=== PATIENT | female | born 1955 | race Caucasian/White ===

== ENCOUNTER 2019-11-17 13:55 | Emergency (ER) | payer MEDICARE, MEDICAID, SELFPAY ==
--- NOTE | 2019-11-17 13:58 | ED.GENADULT ---
HPI - General Adult General Chief complaint: Urogenital-Female Stated complaint: POSSIBLE KIDNEY INFECTION Time Seen by Provider: 11/17/19 13:58 Source: patient Mode of arrival: ambulatory Limitations: no limitations History of Present Illness HPI narrative: 64-year-old female patient presents to the [facility] with complaints of frequent urination, decrease in urination, and low back pain for the past week. Patient states that she thought that she just had some back pain due to work. Patient states she has been taking AZO for the urinary pain which has decreased her pain. Patient states she last took AZO today. Patient denies any abdominal pain, nausea, vomiting or diarrhea. Denies any fevers, body aches or chills. Related Data Home Medications Medication Instructions Recorded Confirmed bupropion HCl 150 mg PO DIRECTED 11/17/19 11/17/19 lisinopril 10 mg PO DAILY 11/17/19 11/17/19 sertraline 100 mg PO DAILY 11/17/19 11/17/19 Allergies Allergy/AdvReac Type Severity Reaction Status Date / Time levofloxacin Allergy Unknown Other Verified 11/17/19 14:07 valacyclovir Allergy Unknown rash Unverified 06/14/18 09:06 adhesive AdvReac Severe BLISTERS/BU Verified 06/14/18 09:06 RNS ENVIRONMENTAL ALLERGENS AdvReac Unknown Other Uncoded 11/17/19 14:07 Review of Systems Review of Systems: Narrative: CONSTITUTIONAL: Denies fever, chills, or sweats. EYES: Denies visual changes, redness, or discharge. ENT: Denies rhinorrhea, congestion, sore throat, or otalgia. CARDIOVASCULAR: Denies chest pain, palpitations, or edema. RESPIRATORY: Denies cough or dyspnea. GASTROINTESTINAL: Denies abdominal pain, nausea, vomiting, or diarrhea. GENITOURINARY: Denies dysuria or hematuria. Positive pain with urination, decrease in urination, urgency urgency and frequency SKIN: Denies rash or itching. MUSCULOSKELETAL: Positive low back pain, denies joint pain, or myalgia. NEUROLOGIC: Denies headache, numbness, or weakness. PSYCHIATRIC: Denies anxiety or depression. REPLACED BY [facility] Past Medical History Medical History (Updated 11/17/19 @ 14:22 by CASI Nieves) Anxiety Depression Hypertension Surgical History Surgical History (Updated 11/17/19 @ 14:00 by CASI Nieves) H/O inguinal hernia repair History of orthopedic surgery Right carpal tunnel, 2 times bilateral ulnar nerve/left thumb trigger finger Hx of cholecystectomy Family History Family History Other Diabetes mellitus Family history of mental disorder Hypertension Social History Social History Smoking status: Never smoker Alcohol intake: current Comments At the time of my signature I agree with nursing past medical history, surgical, social, and family history. There is no relevant family history pertinent to the presenting complaint. Exam Narrative: Exam Narrative: GENERAL: Well-appearing, well-nourished, and in no acute distress. HEAD: Normocephalic, atraumatic. EYES: PERRLA and EOMI. ENT: Nares clear, no rhinorrhea or epistaxis. Mucous membranes moist. NECK: Supple. No lymphadenopathy CHEST: Clear to auscultation. No respiratory distress. HEART: Regular rate and rhythm. No murmur heard. Normal peripheral pulses. ABDOMEN: Soft, nontender, nondistended, normal active bowel sounds. CVA tenderness noted to bilateral sides on percussion. EXTREMITIES: Normal range of motion. No edema. SKIN: Warm, dry, no rash. NEURO: No focal deficits. Alert and oriented x3. Course Vital Signs Vital signs: Vital Signs Temperature 36.4 C 11/17/19 14:12 Pulse Rate 79 11/17/19 14:12 Respiratory Rate 16 11/17/19 14:12 Blood Pressure 136/67 11/17/19 14:12 Pulse Oximetry 98 11/17/19 14:12 Temperature 36.4 C 11/17/19 14:12 Pulse Rate 79 11/17/19 14:12 Respiratory Rate 16 11/17/19 14:12 Blood Pressure 136/67 11/17/19 14:12 Pulse
[2019-11-17 14:12] VITALS: BP 136/67; PULSE 79; RESP 16; TEMP 36.4; O2SAT 98
== END 2019-11-17 14:24 | disposition home or self-care (01) ==
PROVIDERS: Emergency Provider Nurse Practitioner Family
DX: N30.00 Acute cystitis without hematuria (principal); F41.9 Anxiety disorder, unspecified; F32.9 Major depressive disorder, single episode, unspecified; I10 Essential (primary) hypertension
CPT/HCPCS: 81003; 87086; 99213; G0463

== ENCOUNTER 2020-11-26 16:52 | Emergency (ER) | payer OTHER, MEDICARE, MEDICAID, SELFPAY ==
[2020-11-26] VITALS (9 sets, daily range): BP systolic 134–158; BP diastolic 80–90; PULSE 73–80; RESP 12–20; TEMP 36.7–37.4; O2SAT 93–99
--- NOTE | ~2020-11-26 | XR_ITS ---
EXAMINATION: XR wrist RT 2V DATE: 11/26/2020 19:18 INDICATION: Postreduction right wrist fracture TECHNIQUE: Posteroanterior and lateral views of the right wrist were obtained. COMPARISON: 11/26/2020 FINDINGS: Interval reduction and casting of the right wrist fracture. 5 mm residual volar displacement of the d istal radial fracture which appears mildly comminuted with suggestion of nondisplaced fracture line e xtending to the articular cortex. There is widening of the distal radioulnar joint. Fracture across t he base of the ulnar styloid process with improvement in now than on the 5 mm residual radial displac ement. Joint spaces appear normal. IMPRESSION: 1. Improved alignment post reduction and casting of a comminuted potential intra-articular fracture o f the distal right radius with mild residual volar displacement of a fracture across the ulnar styloi d process with mild residual radial displacement. 2. Widening of the distal radioulnar joint. Reviewed, dictated and finalized at location A. IMPRESSION: 1. Improved alignment post reduction and casting of a comminuted potential intr a-articular fracture of the distal right radius with mild residual volar displa cement of a fracture across the ulnar styloid process with mild residual radial displacement. 2. Widening of the distal radioulnar joint.
--- NOTE | ~2020-11-26 | XR_ITS ---
XR wrist RT 2V DATE: 11/26/2020 17:28 INDICATION: Fall, right wrist injury, obvious deformity TECHNIQUE: AP and portable crosstable lateral views COMPARISON: None FINDINGS: There is a comminuted intra-articular fracture of the distal radius with complete anterior displacement. There is a moderately displaced fracture of the ulnar styloid process. Radiocarpal alignment is preserved. Osteopenia. IMPRESSION: Anteriorly displaced comminuted intra-articular fracture of the distal radius Fracture of the ulnar styloid process Reviewed, dictated and finalized at location A. IMPRESSION: Anteriorly displaced comminuted intra-articular fracture of the dis aki radius Fracture of the ulnar styloid process
[2020-11-26] MEDS: fentaNYL CITRATE INJ (*CRX) 100 MCG/2 ML VIAL 50 MCG IV PUSH ×2 (18:26→18:46)
--- NOTE | 2020-11-26 18:46 | PC.NURSE ---
1847 EDP administered 30mg of propofol via IVP.
--- NOTE | 2020-11-26 20:21 | ED.UPPEXIN ---
HPI - Extremity Injury (Upper) General Chief Complaint: Extremity Injury, Upper Stated Complaint: wrist injury Time Seen by Provider: 11/26/20 17:07 Source: patient Mode of arrival: ambulatory Limitations: no limitations History of Present Illness HPI narrative: 65-year-old female Had a ground-level fall shortly before arrival and landed on her right wrist Complains of pain, swelling, deformity No other injuries It was a mechanical fall, not triggered by dizziness or syncope or the like No head injury, no neck pain Related Data Home Medications Medication Instructions Recorded Confirmed bupropion HCl 150 mg PO DIRECTED 11/17/19 11/17/19 lisinopril 10 mg PO DAILY 11/17/19 11/17/19 sertraline 100 mg PO DAILY 11/17/19 11/17/19 Allergies Allergy/AdvReac Type Severity Reaction Status Date / Time levofloxacin Allergy Unknown Other Verified 11/17/19 14:07 valacyclovir Allergy Unknown rash Verified 11/26/20 17:16 escitalopram [From Lexapro] Allergy Unknown Verified 11/26/20 17:16 adhesive AdvReac Severe BLISTERS/BU Verified 06/14/18 09:06 RNS ENVIRONMENTAL ALLERGENS AdvReac Unknown Other Uncoded 11/17/19 14:07 Review of Systems Review of Systems: All systems reviewed & are unremarkable except as noted in HPI and below Constitutional: Constitutional: Denies headache(s) ENT: Denies headache(s) Cardiovascular: Cardiovascular: Denies dyspnea Genitourinary: Genitourinary: Denies urinary frequency Musculoskeletal: Musculoskeletal: Denies back pain, Denies deformity, Reports arthralgias, Reports joint swelling and Denies numbness Integumentary/Breasts: Skin/Breast: Denies wounds Neurologic: Denies dizziness, Denies headache(s), Denies focal weakness, Denies numbness and Denies weakness Hematologic/Lymphatic: Hematologic/Lymphatic: Reports no additional hematologic/lymphatic complaints PMFSH Past Medical History Medical History (Updated 11/26/20 @ 20:26 by Jesus Oscar MD) Anxiety Depression Hypertension Surgical History Surgical History (Updated 11/17/19 @ 14:00 by CASI Nieves) H/O inguinal hernia repair History of orthopedic surgery Right carpal tunnel, 2 times bilateral ulnar nerve/left thumb trigger finger Hx of cholecystectomy Family History Family History Other Diabetes mellitus Family history of mental disorder Hypertension Social History Social History Smoking status: Never smoker Alcohol intake: current Exam Const: General: cooperative and no acute distress Orientation/consciousness: patient oriented x3 (alert) HENMT: Head: normal to inspection, normocephalic and atraumatic Ears: external ears normal General nose exam: no epistaxis Neck: Neck: supple and no JVD Resp: Effort & Inspection: normal respiratory effort and not labored Auscultation: other (BS =) Skin: General skin exam: no rashes or lesions noted Neuro: General: patient oriented x3 (alert) and moves all extremities Speech: normal speech Extrem: Other: Obvious deformity of right wrist with tenderness Old scar from carpal tunnel release Intact distal sensation Intact pulses Psych: Affect: normal affect Course Course Emergency Course: Reviewed pre and postreduction x-rays with Dr. Coffey and he will see her in the office tomorrow Patient advised surgery the very likely recommendation Vital Signs Vital signs: Vital Signs Temperature 37.4 C 11/26/20 17:14 Pulse Rate 80 11/26/20 17:14 Respiratory Rate 14 11/26/20 17:14 Blood Pressure 158/82 H 11/26/20 17:14 Pulse Oximetry 99 11/26/20 17:14 Temperature 36.9 C 11/26/20 19:16 Pulse Rate 78 11/26/20 19:38 Respiratory Rate 20 11/26/20 19:38 Blood Pressure 151/90 H 11/26/20 19:38 Pulse Oximetry 93 11/26/20 19:38 Procedures Orthopedic Fracture Reduction Fracture #1:
== END 2020-11-26 20:35 | disposition home or self-care (01) ==
PROVIDERS: Emergency Provider Emergency Medicine
DX: S52.531A Colles' fracture of right radius, initial encounter for closed fracture (principal); I10 Essential (primary) hypertension; F41.9 Anxiety disorder, unspecified; F32.9 Major depressive disorder, single episode, unspecified; W18.30XA Fall on same level, unspecified, initial encounter
CPT/HCPCS: 25605; 73100; 96374; 99285; A4565; J2704; J3010

== ENCOUNTER 2020-12-02 11:16 | Outpatient (CLI) | payer MEDICARE, MEDICAID, SELFPAY ==
--- NOTE | 2020-12-02 11:41 | ECG_ITS ---
Measurements Intervals Parker Rate: 81 P: 13 SD: 176 QRS: -10 QRSD: 97 T: 37 QT: 366 QTc: 427 Interpretive Statements SINUS RHYTHM DELAYED PRECORDIAL R/S TRANSITION BASELINE ARTIFACT- I, II, AVR, AVL, AVF, V1 BORDERLINE ECG Electronically Signed On 12-02-2020 12:18:40 CDT by Alfred Munoz D.O.
[2020-12-02 12:01] LABS: Anion Gap 8 mmol/L (8-16); Blood Urea Nitrogen 8 mg/dL (7-17); Calcium 9.6 mg/dL (8.4-10.2); Carbon Dioxide 28 mmol/L (22-30); Chloride 106 mmol/L (98-107); Estimated Glomerular Filt Rate > 60; Glucose 101 mg/dL (65-110); Sodium 142 mmol/L (137-145)
== END 2020-12-02 11:17 | disposition home or self-care (01) ==
PROVIDERS: PCP Family Medicine; Visit Provider Orthopaedic Surgery Hand Surgery
DX: M25.531 Pain in right wrist (principal)
CPT/HCPCS: 36415; 80048; 93005

== ENCOUNTER 2021-05-11 11:00 | Outpatient (RCR) | payer OTHER, SELFPAY ==
--- NOTE | 2021-03-10 15:22 | OTOPEVAL ---
OCCUPATIONAL THERAPY INITIAL EVALUATION REPORT 03/10/20 Thank you for referring Liliam Lepe [facility].? The patient is scheduled to be seen for therapy? 2x/week for 3 weeks. Please review, sign, date and return this plan of care DARLEEN. I agree with and certify that the following plan of care is medically necessary. Referring Physician Date Referring Provider: Artem Jameson, *OT Outpatient Evaluation Start: 03/10/21 14:20 Freq: Status: Active Protocol: Document 03/10/21 14:20 HODAN (Rec: 03/10/21 15:22 HODAN [email or web address]) Therapy Assessment Status Assessment Status Assessment Status Evaluation Outpatient Past Medical History Past Medical History Source of Past Medical History Recalled from Previous Visit, Confirmed with Patient/Family Cardiovascular History Hx Hypertension Yes Gastrointestinal History Hx Cholecystectomy Yes Hx Hernia Yes: repaired Musculoskeletal History Hx Orthopedic Surgery Yes: rt carpal tunnel, bilat ulnar nerve/ lt trigger finger Psychosocial History Hx Anxiety Yes Hx Depression Yes Evaluation Information Problem Diagnosis Right distal radius fracture Cause Fall Additional Evaluation Detail ORIF 12/03/20 Subjective Information Liliam reports being 3-4 week s Query Text:As Reported By Patient/ /p immobilization. She states Family she had some delayed healing in one of the bones. 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 She reports she has not been back to work yet. She states that her limitations are stiffness and weakness. She lives home alone and has returned to being independent with ADLs, household tasks, and laundry. She notes difficulties with opening a bottle with the right hand, with lifting a lewis /pot with food/liquid in it, and she is unable to start her car with the right hand. Pain Assessment Timing of Pain Assessment Timing of Pain Assessment Assessment Pain Scale Pain Scale Used Numeric (1 - 10) Self Report Pain Assessment Right Wrist(s) Reported Pain Level 2 Pain Description Aching Pain Frequency Continuous Lowest Pain Intensity 1 Greatest Pain In
--- NOTE | 2021-03-26 10:01 | OTOPEVAL ---
OCCUPATIONAL THERAPY RE-ASSESSMENT AND POC UPDATE 03/26/21 OT re-assessment completed today after 5 therapy visits. Patient making progress with functional ROM and is progressing with functional use. She continues to have deficits with pain and weakness, which restricts her ability to complete heavier ADL tasks. Continued skilled OT indicated for strengthening progression, use of modalities, and functional therapeutic activities to promote optimal functional use of the right UE. Thank you for referring Liliam Lepe to [facility].? The patient is scheduled to be seen for therapy? 2x/week for 4 weeks. Please review, sign, date and return this plan of care DARLEEN. I agree with and certify that the following plan of care is medically necessary. Referring Physician Date Referring Provider: Artem Jameson, *OT Outpatient Re-Evaluation Start: 03/10/21 14:20 Diagnosis Right distal radius fracture Cause Fall Additional Evaluation Detail ORIF 12/03/20 Subjective Information Liliam reports that since Query Text:As Reported By Patient/ working with therapy Family everything is getting better . She states that cooking is getting easier and she is able to stir food with the right hand. She reports improved ability to start the car with the right hand. She continues to have difficulties with opening bottles/jars and states she is unable to pull wet clothes out of the washer with the right hand. She reports being discouraged that she isn't farther along. Pain Assessment Timing of Pain Assessment Timing of Pain Assessment Re-assessment Pain Scale Pain Scale Used Numeric (1 - 10) Self Report Pain Assessment Right Wrist(s) Reported Pain Level 2 Pain Description Aching Lowest Pain Intensity 1 Greatest Pain Intensity 4 Pain Score Pain Score 2: Self Report Interventions Used Interventions Used By Clinicians Exercise Upper Extremity Range of Motion Elbow/Forearm Range of Motion Right Forearm Supination - Active 75 Forearm Pronation - Active 85 Elbow/Forearm Range of Motion Comments Supination improved from 65* Pronation remained WFL Wrist Range of Motion Right Wrist Flexion - Active 65 Wrist Extension - Active 50 Wrist Radial Deviation - Active 25 Wrist Ulnar Deviation - Active 20 Wrist Range of Motion Comments Wrist flexion improved from 35* Wrist extension improved from 45* Wrist RD improved from 20*
--- NOTE | 2021-04-08 12:10 | PCOTNOTE ---
Patient called & cancelled scheduled appointment this date due to the weather.
--- NOTE | 2021-04-22 14:16 | OTOPEVAL ---
OCCUPATIONAL THERAPY RE-EVALUATION AND PROGRESS REPORT 04/22/21 OT re-assessment completed today after 7 weeks of therapy. Patient making progress with ROM, functional strength, and use. She has been compliant with stress loading protocol, completing sessions 2-3x/day. We have been simulating work tasks in the clinic and she is progressing with her lifting tolerance as well as functional endurance. Plan to continue to work with the patient for an additional 2 weeks with the goal of being ready to return to work by her next MD follow up on 05/12/21. Thank you for referring Liliam Lepe to [facility].? The patient is scheduled to be seen for therapy? 1-2x/week for 3 weeks. Please review, sign, date and return this plan of care DARLEEN. I agree with and certify that the following plan of care is medically necessary. Referring Physician Date Referring Provider: Artem Jameson, *OT Outpatient Evaluation Start: 03/10/21 14:20 Evaluation Information Diagnosis Right distal radius fracture Cause Fall Additional Evaluation Detail ORIF 12/03/20 Subjective Information Liliam reports that she is Query Text:As Reported By Patient/ doing better with functional Family use of the right hand. She states she is doing better with opening jars, pulling wet clothes out of the washer, and carrying items. She reports her arm gets tired easy, but she is able to do more than she was doing a month ago. Pain Assessment Timing of Pain Assessment Timing of Pain Assessment Assessment Pain Scale Pain Scale Used Numeric (1 - 10) Self Report Pain Assessment Right Wrist(s) Reported Pain Level 1 Pain Description Aching Lowest Pain Intensity 1 Greatest Pain Intensity 4 Pain Score Pain Score 1: Self Report Interventions Used Interventions Used By Clinicians Exercise,Paraffin Upper Extremity Range of Motion Elbow/Forearm Range of Motion Right Forearm Supination - Active 75 Forearm Pronation - Active 85 Elbow/Forearm Range of Motion Comments Since the last re-eval on 03/26, pronation/supination remained unchanged. She is WFL. Wrist Range of Motion Right Wrist Flexion - Active 67 Wrist Extension - Active 55 Wrist Radial Deviation - Active 30 Wrist Ulnar Deviation - Active 25 Wrist Range of Motion Comments Since the last re-eval on 03/26: Wrist flexion improved from 65* Wrist extension improved from 50* Wrist RD improved from 25* Wrist UD improved from 20* Finger Range of Motion Bilateral Reason Not Measured
--- NOTE | 2021-05-01 14:33 | PCOTNOTE ---
Patient called & cancelled scheduled appointment this date due to the icy weather.
--- NOTE | 2021-05-11 11:44 | OTOPEVAL ---
OCCUPATIONAL THERAPY RE-EVALUATION AND DISCHARGE NOTE 05/11/21 Liliam presents for her 3rd OT re-evaluation since beginning therapy on 03/10/21. Her ROM is within functional limits and she is using her right UE for more everyday tasks. She has been able to tolerate lifting more weight, but she continues to report being anxious about going back to work. We have practiced simulated work tasks in the clinic and she does really well with lifting, carrying, pushing, etc. 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 At this time, plan to discharge the patient from therapy with the goal of Liliam continuing to work on her home exercise program and to return to work to continue to build her strength and functional use tolerance. She states she is in agreement with this plan. Thank you for referring Liliam Lepe to [facility]. Please review, sign, date and return this D/C Note DARLEEN. I agree with and certify that the following plan of care is medically necessary. Referring Physician Date Referring Provider: Artem Jameson, *OT Outpatient Re-Evaluation Start: 03/10/21 14:20 Diagnosis Right distal radius fracture Cause Fall Additional Evaluation Detail ORIF 12/03/20 03/10/21 - OT began. She has attended 17 sessions. Subjective Information Liliam reports that she has Query Text:As Reported By Patient/ made a lot of progress in the Family last month. She states she is now able to pull wet clothes out the washer, carry her 4# purse, do the dishes, clean the bathroom, and make the bed . She notices that her arm continues to get fatigued, but not as bad as a month ago. She states that she talked to her boss and they are going to have her come back for 1 day/ week. She will go back with another worker there at all times. She states she is anxious about going back, but states she is ready. Pain Assessment Timing of Pain Assessment Timing of Pain Assessment Re-assessment Pain Scale Pain Scale Used Numeric (1 - 10) Self Report Pain Assessment Right Wrist(s) Reported Pain Level 1 Pain Description Aching,Dull Lowest Pain Intensity 1 Greatest Pain Intensity 4 Pain Score Pain Score 1: Self Report Interventions Used Interventions Used By Clinicians Education Upper Extremity Range of Motion Elbow/Forearm Range of Motion Right Forearm Supination - Active 75 Forearm Pronation - Active 85 Elbow/Forearm Range of Motion Comments Pronation/supination
== END 2021-05-11 15:31 | disposition home or self-care (01) ==
LOC: ANHOT 11:00
PROVIDERS: PCP Family Medicine; Referring Provider Orthopaedic Surgery Hand Surgery; Visit Provider Orthopaedic Surgery Hand Surgery
DX: M25.531 Pain in right wrist (principal); S52.571S Other intraarticular fracture of lower end of right radius, sequela
CPT/HCPCS: 97018; 97110; 97140; 97165

== ENCOUNTER 2021-09-21 06:52 | Outpatient (CLI) | payer OTHER, SELFPAY ==
--- NOTE | ~2021-09-21 | MR_ITS ---
EXAMINATION: MR wrist RT wo con DATE: 09/21/2021 07:43 INDICATION: Closed fracture of the distal right radius TECHNIQUE: Magnetic resonance imaging (MRI) of the right wrist was performed without intravenous cont rast. Sequences performed include axial PD-weighted FSE and PD-weighted FS FSE, coronal PD-weighted F S FSE and T1-weighted SE, and sagittal PD-weighted FS FSE and PD-weighted FSE. COMPARISON: Radiographs dated 11/24/2020 FINDINGS: Bones/other: The distal right radial fracture has healed in near-anatomic alignment with volar T plate and screw f ixation. There are some associated metallic magnetic field artifact which mildly limits evaluation in the immediately adjacent bone and soft tissues. 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 There is mild dorsal subluxation of the ulna at the distal radioulnar joint with widening of the volar side of the joint space. Increased lunocapitate angle of 27 degrees . No more recent fracture, erosions, avascular necrosis or pathologic marrow replacing process. Mild osteoarthritis at the wris t, triscaphe and first carpal metacarpal joints. Intrinsic ligaments: There is a tear of the central membranous portion of the scapholunate ligament. Thickening and amorph ous mild increased signal at the volar and more subtly at the dorsal components of the scapholunate l igament consistent with partial tear. The lunotriquetral ligament is normal. Triangular fibrocartilage complex (TFCC): There is mild increased intrasubstance signal at the central fibrocartilaginous disc of the triangula r fibrocartilage complex as well as along the dorsal radioulnar ligament consistent with partial tear s. Complete tear of the foveal attachment. The attachment to the nonunited ulnar styloid fragment rem ains intact. The volar radioulnar and ulnar triquetral ligaments are normal. There is thickening and mild increased signal of the ulnar side of the extensor carpi ulnaris tendon subjacent sheath consist ent with scarring related to prior partial tear. Extensor wrist: Extensor tendons of the wrist are normal. No tenosynovitis. Flexor wrist: The flexor tendons of the wrist are normal. No abnormality in the carpal tunnel with normal median n erve. There is likely postoperative scarring in the subcutaneous tissues extending along the flexor c arpi radialis tendon. Guyon's canal: Guyon's canal including the ulnar nerve and artery are normal. IMPRESSION: 1. 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 2. Complete tear of the foveal attachment of the triangular fibrocartilage complex and partial tears of the dorsal radioulnar ligament, central fibrocartilaginous disc of the triangular fibrocartilage c omplex as well as the ulnar side of the extensor carpi ulnaris subsheath. Secondary mild dorsal sublu xation of the ulna at the distal radioulnar joint. 3. Scarring consistent with partial tear of the scapholunate ligament with increased lunocapitate ang le consistent with secondary dorsal intercalated segment instability (DISI). Reviewed, dictated and finalized at location A. IMPRESSION: 1. Healed internally fixed fracture of the distal radius in near-anatomic align ment with residual mild distraction of a chronic nonunited fracture of the ulna r styloid process. 2. Complete tear of the foveal attachment of the triangular fibrocartilage comp oralia and partial tears of the dorsal radioulnar ligament, central fibrocartilagi nous disc of the triangular fibrocartilage complex as well as the ulnar side of the extensor carpi ulnaris subsheath. Secondary mild dorsal subluxation of the ulna at the dista
== END 2021-09-21 06:53 | disposition home or self-care (01) ==
PROVIDERS: Visit Provider Orthopaedic Surgery Hand Surgery
DX: S66.811D Strain of other specified muscles, fascia and tendons at wrist and hand level, right hand, subsequent encounter (principal); X58.XXXD Exposure to other specified factors, subsequent encounter
CPT/HCPCS: 73221

== ENCOUNTER 2022-02-05 08:15 | Emergency (ER) | payer OTHER, SELFPAY ==
[2022-02-05 08:32] VITALS: BP 134/97; PULSE 90; RESP 16; TEMP 36.3; O2SAT 98
--- NOTE | 2022-02-05 08:43 | ED.URI ---
HPI - URI/Sore Throat General Chief Complaint: Upper Respiratory Infection Stated Complaint: productive cough, loss of voice, trouble sleeping Time Seen by Provider: 02/05/22 08:43 Source: patient Mode of arrival: ambulatory Limitations: no limitations History of Present Illness HPI Narrative: 66-year-old female presents with complaint cough, chest congestion for 2 weeks. Report source voice, sore throat. Taking [id number] cough medication with no relief. Reports some days she feels better and then the next day she feels bad again. Reports mild shortness of breath with exertion. Afebrile. Did home COVID test that was negative. Denies nausea vomiting diarrhea. All Systems reviewed and negative except as noted above. Related Data Home Medications Medication Instructions Recorded Confirmed bupropion HCl 150 mg tablet,12 hr 150 mg PO DIRECTED 11/17/19 02/05/22 sustained-release lisinopril 10 mg tablet 10 mg PO DAILY 11/17/19 02/05/22 sertraline 100 mg tablet 100 mg PO DAILY 11/17/19 02/05/22 clonazepam 0.5 mg tablet 0.5 mg PO DAILY PRN Anxiety 12/05/20 02/05/22 Allergies Allergy/AdvReac Type Severity Reaction Status Date / Time levofloxacin Allergy Unknown Other Verified 02/05/22 08:37 valacyclovir Allergy Unknown rash Verified 02/05/22 08:37 escitalopram [From Lexapro] Allergy Unknown Verified 02/05/22 08:37 adhesive AdvReac Severe BLISTERS/BU Verified 02/05/22 08:37 RNS ENVIRONMENTAL ALLERGENS AdvReac Unknown Other Uncoded 02/05/22 08:37 Review of Systems Review of Systems: CONSTITUTIONAL: Denies fever, chills, or sweats. reports fatigue EYES: Denies visual changes, redness, or discharge. ENT: reports rhinorrhea, congestion, sore throat. Denies otalgia. CARDIOVASCULAR: Denies chest pain, palpitations, or edema. RESPIRATORY: reports cough and dyspnea on exertion. GASTROINTESTINAL: Denies abdominal pain, nausea, vomiting, or diarrhea. GENITOURINARY: Denies dysuria or hematuria. SKIN: Denies rash or itching. MUSCULOSKELETAL: Denies back pain, joint pain, or myalgia. NEUROLOGIC: Denies headache, numbness, or weakness. PSYCHIATRIC: Denies anxiety or depression. All other systems reviewed are negative, except as documented in HPI. [facility] Past Medical History Medical History Anxiety Depression Hypertension Surgical History Surgical History H/O inguinal hernia repair History of orthopedic surgery Right carpal tunnel, 2 times bilateral ulnar nerve/left thumb trigger finger Hx of cholecystectomy Family History Family History (Updated 12/05/20 @ 13:43 by Agnes Dumont MA) Other Arthritis Depression Diabetes mellitus Family history of mental disorder Hypertension Social History Social History (Updated 12/05/20 @ 13:44 by Agnes Dumont MA) Smoking status: Never smoker Alcohol intake: never Substance use: never 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 There is no relevant family history pertinent to the presenting complaint. Exam Narrative: GENERAL: This is a well-nourished, well-developed patient, in no apparent distress. HEAD: normocephalic, atraumatic. EYES: PERRL. Sclera clear/white. Vision is grossly intact. EARS: External ears normal, auditory canals clear and without drainage, TMs normal without perforation. Hearing grossly intact. NOSE: External nose normal with clear nasal drainage, erythema to both nares. THROAT: Mucous membranes moist, Mild erythema of throat with postnasal drip. NECK: Neck supple, non-tender without lymphadenopathy, masses or thyromegaly. CARDIOVASCULAR: Regular rate and rhythm without murmurs, gallops, or rubs. RESPIRATORY: Decreased lung sounds t
== END 2022-02-05 09:03 | disposition home or self-care (01) ==
PROVIDERS: Emergency Provider Nurse Practitioner Family
DX: R05.9 Cough, unspecified (principal); J04.0 Acute laryngitis; I10 Essential (primary) hypertension
CPT/HCPCS: 99213; G0463

== ENCOUNTER 2023-08-21 12:53 | Emergency (ER) | payer MEDICARE, MEDICAID, SELFPAY ==
--- NOTE | ~2023-08-21 | XR_ITS ---
EXAMINATION: XR chest 2V DATE: 08/21/2023 13:45 INDICATION: Right-sided chest wall pain post fall TECHNIQUE: PA and lateral views of the chest were obtained. COMPARISON: Chest radiograph dated 05/17/2006 FINDINGS: Linear and bandlike predominant opacities at the right lung base and favor atelectasis/scarring over pneumonia. Additional minimal streaky opacities lung the left hemidiaphragm including at the costophr enic angle with similar differential. No pulmonary edema, pleural effusion or pneumothorax. Heart siz e is normal with prominent bilateral pericardial fat pads. Moderate thoracic spondylosis. Cholecystec jennyfer clips at the gallbladder fossa. IMPRESSION: 1. Opacities at the bilateral lung bases, right greater than left which could represent atelectasis o r pneumonia. Reviewed, dictated and finalized at location A. IMPRESSION: 1. Opacities at the bilateral lung bases, right greater than left which could r epresent atelectasis or pneumonia.
--- NOTE | ~2023-08-21 | XR_ITS ---
EXAMINATION: XR shoulder RT min 2V DATE: 08/21/2023 13:45 INDICATION: Posterior right shoulder pain post fall TECHNIQUE: AP internally and externally rotated, AP oblique externally rotated and transscapular Y vi ews of the right shoulder were obtained. COMPARISON: None FINDINGS: Normal alignment. No fracture.Moderate right acromioclavicular osteoarthritis. Right glenohumeral augusto int space appears relatively preserved. Opacities at the right lung base which could represent atelec tasis or pneumonia. IMPRESSION: Moderate right acromioclavicular osteoarthritis. No acute osseous abnormality. Reviewed, dictated and finalized at location A.
--- NOTE | ~2023-08-21 | CT_ITS ---
EXAMINATION: CT brain wo con DATE: 08/21/2023 13:42 INDICATION: Left posterior head injury post fall 2 days prior TECHNIQUE: Computed tomography (CT) of the head was performed without intravenous contrast. Sagittal and coronal reconstructions were performed. The mA was adjusted according to patient size. Iterative reconstruction technique was employed. The dose-length product was 605.33 mGy-cm. COMPARISON: head CT dated 05/17/06 FINDINGS: No fracture. No acute intracranial hemorrhage, acute infarction or abnormal extra axial fluid collect ion. There is minimal scattered white matter hypoattenuation consistent with chronic small vessel isc hemic disease. Ventricles are normal and symmetric. No mass/mass effect. Changes of bilateral intrao cular lens replacement. The orbits, paranasal sinuses and mastoid air cells are normal. A couple calc ified scalp nodules to the right of the vertex most consistent with trichilemmal cysts. IMPRESSION: 1. Normal aging brain. No fracture or acute intracranial process. Reviewed, dictated and finalized at location A.
[2023-08-21 12:55] VITALS: BP 146/92; PULSE 104; RESP 17; TEMP 37.1; O2SAT 95
--- NOTE | 2023-08-21 13:25 | ED.FALL ---
HPI - Fall General Chief Complaint: Fall Stated Complaint: fall Time Seen by Provider: 08/21/23 13:10 History of Present Illness HPI Narrative: 67-year-old female presented to the emergency department for evaluation after having a fall from bed on Tuesday. Patient reports approximate 5:00 a.m. she had a fall from bed. Patient is unsure if she struck her head. Patient does complain of right-sided chest wall pain and shoulder pain. Related Data Home Medications Medication Instructions Recorded Confirmed bupropion HCl 150 mg tablet,12 hr 150 mg PO DIRECTED 11/17/19 02/05/22 sustained-release lisinopril 10 mg tablet 10 mg PO DAILY 11/17/19 02/05/22 sertraline 100 mg tablet 100 mg PO DAILY 11/17/19 02/05/22 clonazepam 0.5 mg tablet 0.5 mg PO DAILY PRN Anxiety 12/05/20 02/05/22 Allergies Allergy/AdvReac Type Severity Reaction Status Date / Time levofloxacin Allergy Unknown Other Verified 08/21/23 13:03 valacyclovir Allergy Unknown rash Verified 08/21/23 13:03 escitalopram [From Lexapro] Allergy Unknown Verified 08/21/23 13:03 adhesive AdvReac Severe BLISTERS/BU Verified 08/21/23 13:03 RNS ENVIRONMENTAL ALLERGENS AdvReac Unknown Other Uncoded 08/21/23 13:03 Review of Systems Review of Systems: All systems reviewed & are unremarkable except as noted in HPI and below PMFSH Past Medical History Medical History Anxiety Depression Hypertension Surgical History Surgical History H/O inguinal hernia repair History of orthopedic surgery Right carpal tunnel, 2 times bilateral ulnar nerve/left thumb trigger finger Hx of cholecystectomy Family History Family History (Updated 12/05/20 @ 13:43 by Agnes Dumont MA) Other Arthritis Depression Diabetes mellitus Family history of mental disorder Hypertension Social History Social History (Updated 12/05/20 @ 13:44 by Agnes Dumont MA) Smoking status: Never smoker Alcohol intake: never Substance use: never 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 HEAD: normocephalic, atraumatic. EYES: PERRLA/EOMI, conjunctivae clear. NOSE: Normal no drainage EARS:TMS clear with good light reflex. THROAT: Pharynx clear, no exudate. NECK: Supple. No adenopathy, no masses. RESPIRATORY: Airway patent, respirations nonlabored. Clear to auscultation bilaterally, no rales, rhonchi, wheezing. CARDIOVASCULAR: Regular rate and rhythm without murmurs rubs or gallops. ABDOMINAL: Soft, nontender, nondistended, normal bowel sounds MUSCULOSKELETAL: Right-sided chest wall ecchymosis NEURO: Alert. Cranial nerves II through XII intact. Good gait. Good coordination SKIN: Warm, dry. Normal Color Course Vital Signs Vital signs: Vital Signs Temperature 98.8 F 08/21/23 12:55 Pulse Rate 104 H 08/21/23 12:55 Respiratory Rate 17 08/21/23 12:55 Blood Pressure 146/92 H 08/21/23 12:55 Pulse Oximetry 95 08/21/23 12:55 Oxygen Delivery Room Air 08/21/23 12:55 Temperature 98.8 F 08/21/23 12:55 Pulse Rate 104 H 08/21/23 12:55 Respiratory Rate 17 08/21/23 12:55 Blood Pressure 146/92 H 08/21/23 12:55 Pulse Oximetry 95 08/21/23 12:55 Oxygen Delivery Room Air 08/21/23 12:55 MDM - Fall MDM Narrative Medical decision making narrative: 67-year-old female presenting to the emergency department for evaluation after having a fall from bed. Head CT was negative for acute intracranial abnormality. Right shoulder shows no acute fracture dislocation. Chest x-ray shows no evidence of pneumonia or pneumothorax. Patient's vital signs are stable. Patient was updated the results of the workup. Patient was comfortable with plan for discharge and close follow-up. Differential Sara
[2023-08-21] MEDS: HYDROcodone/acetaminophen (*CRX) 5-325 MG TABLET 1 TAB PO (14:10)
== END 2023-08-21 14:10 | disposition home or self-care (01) ==
PROVIDERS: Emergency Provider Emergency Medicine
DX: S20.211A Contusion of right front wall of thorax, initial encounter (principal); I10 Essential (primary) hypertension; F41.9 Anxiety disorder, unspecified; F32.A Depression, unspecified; Z90.49 Acquired absence of other specified parts of digestive tract; Z79.899 Other long term (current) drug therapy; M19.011 Primary osteoarthritis, right shoulder; W06.XXXA Fall from bed, initial encounter
CPT/HCPCS: 70450; 71046; 73030; 99284; A9270

== ENCOUNTER 2023-10-04 13:38 | Outpatient (CLI) | payer MEDICARE, MEDICAID, SELFPAY ==
--- NOTE | ~2023-10-04 | MR_ITS ---
EXAMINATION: MR brain/brain stem wo con DATE: 10/04/2023 14:27 INDICATION: Dizziness. TECHNIQUE: Magnetic resonance imaging (MRI) of the brain and brainstem was performed without intraven ous contrast. COMPARISON: Head CT 08/21/2023 FINDINGS: There is no intracranial hemorrhage, acute infarction, or abnormal intracranial mass lesion . There are scattered areas of nonspecific increased T2-weighted signal intensity in the cerebral whi te matter, which is within normal limits for the patient's age. The ventricles are normal in size. Th ere are likely changes of ocular lens replacement surgeries. The paranasal sinuses are clear. The mas toid air cells are normal. IMPRESSION: 1. Normal aging brain. Reviewed, dictated and finalized at location A. IMPRESSION: 1. Normal aging brain.
== END 2023-10-04 13:39 ==
PROVIDERS: PCP Nurse Practitioner; Visit Provider Nurse Practitioner
DX: R42 Dizziness and giddiness (principal); R29.6 Repeated falls; R51.9 Headache, unspecified
CPT/HCPCS: 70551